=== PATIENT | female | born 1995 | race Caucasian/White ===

== ENCOUNTER → 2016-11-05 | Outpatient (REF) | payer OTHER | LOC: M LAB REF 17:11 | PROVIDERS: ATTEND Advanced Practice Midwife | DX: Z34.83 Encounter for supervision of other normal pregnancy, third trimester (principal) ==

== ENCOUNTER 2016-12-07 19:30 | Inpatient (IN) | payer OTHER ==
[~2016-12-07] VITALS: Ht 175.3 cm; Wt 125.0 kg
[2016-12-07 19:48] VITALS: BP 168/94
[2016-12-07 20:04] VITALS: BP 139/81
[2016-12-07] MEDS: miSOPROStol 50 MCG 1/2 TAB (S0191) PO SCH (20:39)
[2016-12-07 20:47] VITALS: BP 145/88
[2016-12-07 21:03] VITALS: BP 142/87
[2016-12-07 21:07] LABS: MEAN CORPUSCULAR HEMOGLOBIN 26.3 pg (27.0-33.0); MEAN CORPUSCULAR HGB CONC 33.4 g/dl (32.0-36.5); MEAN CORPUSCULAR VOLUME 78.7 fl (80.0-96.0); RED CELL DISTRIBUTION WIDTH 14.5 % (11.5-14.5); WHITE BLOOD COUNT 9.7 K/mm3 (4.0-10.0)
[2016-12-07 22:01] VITALS: BP 122/79
[2016-12-07 22:46] LABS: ALT/SGPT 13 U/L (12-78); AST/SGOT 13 U/L (15-37); BILIRUBIN,TOTAL 0.2 MG/DL (0.2-1.0); CREATININE FOR GFR 0.61 MG/DL (0.55-1.02); GLOMERULAR FILTRATION RATE > 60.0 (>60); URIC ACID 4.4 MG/DL (2.6-6.0)
[2016-12-07 23:12] VITALS: BP 124/69
[2016-12-08] VITALS (28 sets, daily range): BP systolic 113–151; BP diastolic 57–94
[2016-12-08] MEDS: miSOPROStol 50 MCG 1/2 TAB (S0191) PO SCH ×2 (00:41→05:03)
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
[2016-12-08] MEDS ORDERED: LR 1,000 ML IV SCH (15:21)
[2016-12-08] MEDS ORDERED: OXYTOCIN DRIP 30 UNITS in APPROPRIATE DILUENT 1 EA IV SCH (15:30)
[2016-12-08] MEDS ORDERED: FENTANYL 2MCG/ML ROPIVACAINE 0.2% NACL 250 ML CADD As Ordered ONE (16:00)
[2016-12-08] MEDS ORDERED: FENTANYL/ROPIVACAINE/NACL CADD 250 ML EPIDURAL SCH (17:00)
[2016-12-08] MEDS ORDERED: LACTATED RINGER'S 1000 ML IV PRN (17:00)
[2016-12-08] MEDS ORDERED: ONDANSETRON 4MG/2ML VIAL (J2405) IV PRN (17:00)
[2016-12-08] MEDS ORDERED: NALOXONE INJ 0.4 MG/1 ML VIAL (J2310) IV PRN (17:00)
[2016-12-08] MEDS ORDERED: EPIDURAL/PCA KEYS XX PRN (17:00)
[2016-12-08] MEDS ORDERED: ePHEDrine SULFATE 25 MG/5 ML(5MG/ML) SYRINGE IV PRN (17:00)
[2016-12-08] MEDS ORDERED: diphenhydrAMINE INJ 50MG/ML VIAL (J1200) IV PRN (17:00)
[2016-12-08] MEDS ORDERED: EPIDURAL COMMENT XX SCH (17:00)
[2016-12-08] MEDS ORDERED: REFRIGERATOR IV KEYS XX PRN (17:00)
[2016-12-08] MEDS: ACETAMINOPHEN 500 MG TAB PO PRN (20:55)
[2016-12-08] MEDS ORDERED: AMPICILLIN SOD/SULBACTAM SOD 3 GM in D5W MINI-BAG PLUS 100 ML IV SCH (22:00)
[2016-12-09 00:49] LABS: CORD GAS ABE V -4.7; CORD GAS HCO3 V 19.9 MEQ/L; CORD GAS O2 SAT V 61.8 %; CORD GAS PCO2 V 36.4 mmHg; CORD GAS PH V 7.355 UNITS; CORD GAS PO2 V 25.6 mmHg; CORD GAS SBC V 19.6 MEQ/L
[2016-12-09 00:52] LABS: CORD GAS ABE A -7.2; CORD GAS HCO3 A 20.4 MEQ/L; CORD GAS O2 SAT A 19.1 %; CORD GAS PCO2 A 48.5 mmHg; CORD GAS PH A 7.242 UNITS; CORD GAS PO2 A 15.5 mmHg; CORD GAS SBC A 16.8 MEQ/L; CORD GAS TCO2 A 21.9 MEQ/L
[2016-12-09] MEDS ORDERED: OXYTOCIN DRIP 30 UNITS in APPROPRIATE DILUENT 1 EA IV SCH (00:52)
[2016-12-09] MEDS ORDERED: MEASLES,MUMPS,RUBELLA VACCINE INJ (MMR-II) (90707) SC SCH (01:00)
[2016-12-09] MEDS ORDERED: METHYLERGONOVINE MALEATE 0.2 MG TAB PO PRN (01:00)
[2016-12-09] MEDS ORDERED: DOCUSATE SODIUM 100 MG CAP PO PRN (01:00)
[2016-12-09] MEDS ORDERED: DIBUCAINE 1% OINTMENT 30GM TOP PRN (01:00)
[2016-12-09] MEDS ORDERED: IBUPROFEN 800 MG TAB PO PRN (01:00)
[2016-12-09] MEDS ORDERED: ANUSOL HC CREAM 30GM TOP PRN (01:00)
[2016-12-09] MEDS ORDERED: RHOGAM 300 MCG (1500 IU) INJ (J2790) IM SCH (01:00)
[2016-12-09 01:52] VITALS: BP 131/62
[2016-12-09] MEDS: AMPICILLIN SOD/SULBACTAM SOD 3 GM in D5W MINI-BAG PLUS 100 ML IV SCH ×4 (03:50→21:40)
[2016-12-09] MEDS: ACETAMINOPHEN 500 MG TAB PO PRN (03:50)
[2016-12-09 05:34] VITALS: BP 118/58
--- NOTE | 2016-12-09 06:41 | DN ---
DATE: 12/09/2016 Miguel is a 21-year-old 1, para 1-0-0-1 now who was admitted to labor and delivery for induction of labor due to post-term . She did utilize an epidural for her labor coping. She progressed to full dilation at 2351 hours, pushed to a normal spontaneous vaginal delivery of a live female in OA position with restitution to LOT position at 0008. There is a nuchal cord times one, loose, that was reduced manually. [place] was placed on the maternal abdomen crying and active. Mouth and nares were bulb suctioned. There was noted to be terminal meconium at the time of delivery. Cord was clamped times two and cut by the father of the baby. Cord blood and cord gases were obtained. A spontaneous expulsion of an intact placenta with three-vessel cord by [place] mechanism was at 0013 hours. Uterine hemostasis was achieved with uterine fundal massage and IV Pitocin rapid improved infusion. Estimated blood loss 400 mL. Perineum and vagina inspected noted to have a first-degree midline laceration and bilateral labial laceration. The midline laceration was repaired with #3-0 Rapide in the usual fashion. Bilateral labials were hemostatic and no need for any repair. Female infant weighed 9 pounds 5 ounces, 4232 grams, scores 9 and 9. Mom plans to breastfeed her daughter. The family have named her Beatriz. At the close of delivery lap counts, needle counts and instrument counts were correct and verified.
[2016-12-09] MEDS: PRENATAL VITAMIN TAB PO SCH (09:00)
[2016-12-09 18:05] VITALS: BP 142/79
[2016-12-10] MEDS: AMPICILLIN SOD/SULBACTAM SOD 3 GM in D5W MINI-BAG PLUS 100 ML IV SCH (04:08)
[2016-12-10 05:56] VITALS: BP 132/79
[2016-12-10 07:29] LABS: MEAN CORPUSCULAR HEMOGLOBIN 26.3 pg (27.0-33.0); MEAN CORPUSCULAR HGB CONC 33.1 g/dl (32.0-36.5); MEAN CORPUSCULAR VOLUME 79.5 fl (80.0-96.0); RED CELL DISTRIBUTION WIDTH 14.8 % (11.5-14.5); WHITE BLOOD COUNT 12.2 K/mm3 (4.0-10.0)
[2016-12-10] MEDS: PRENATAL VITAMIN TAB PO SCH (08:37)
[2016-12-10 18:51] VITALS: BP 135/78
[2016-12-11 06:08] VITALS: BP 143/90
[2016-12-11] MEDS ORDERED: IBUP-1114 PO (08:04)
[2016-12-11] MEDS ORDERED: ACET50TA PO (08:04)
[2016-12-11] MEDS ORDERED: COLA100C PO (08:04)
[2016-12-11] MEDS: PRENATAL VITAMIN TAB PO SCH (08:27)
== END 2016-12-11 12:30 | disposition home or self-care (01) | DRG 775 ==
LOC: M LDI 19:30 → M OBS 12-09 01:42
PROVIDERS: ADMIT Advanced Practice Midwife; ATTEND Advanced Practice Midwife
PROC: 3E0DXGC Introduction of Other Therapeutic Substance into Mouth and Pharynx, External Approach (ICD-10-PCS; 2016-12-07)
PROC: 10E0XZZ Delivery of Products of Conception, External Approach (ICD-10-PCS; principal; 2016-12-09)
PROC: 0HQ9XZZ Repair Perineum Skin, External Approach (ICD-10-PCS; 2016-12-09)
DX: O48.0 Post-term pregnancy (principal); Z37.0 Single live birth; Z3A.41 41 weeks gestation of pregnancy; O69.82X0 Labor and delivery complicated by other cord entanglement, without compression, not applicable or unspecified; O77.0 Labor and delivery complicated by meconium in amniotic fluid; O70.0 First degree perineal laceration during delivery; Z91.410 Personal history of adult physical and sexual abuse

== ENCOUNTER 2017-05-31 11:05 | Emergency (ER) | payer OTHER ==
[~2017-05-31] VITALS: Ht 175.3 cm; Wt 115.8 kg
[~2017-05-31 11:05] MED LIST: ACET50TA PO; COLA100C5 PO; IBUP-1114 PO
[2017-05-31] MEDS ORDERED: BCP PO (11:15)
[2017-05-31] MEDS ORDERED: ZOLO50TA PO (11:15)
[2017-05-31 11:45] LABS: CALCIUM OXALATE CRYSTALS SMALL
[2017-05-31] MEDS ORDERED: NORCO, ANEXSIA 5/325MG TABLET (HYDROcodone/ACETAMINOPHEN) PO ONE (11:45)
[2017-05-31] MEDS ORDERED: ONDANSETRON 4 MG ORAL DISINTEGRATING TAB (S0181) PO ONE (11:45)
--- NOTE | 2017-05-31 13:04 | REP ---
Pelvic ultrasound including transabdominal, endovaginal and Doppler ultrasound assessment: The uterus is anteverted and normal size measuring 8.4 4.3 x 6.5 cm. The endometrium is not thickened measuring 3.6 mm. The right ovary is normal size measuring 2.4 x 1.8 x 2.2 cm. There is no dominant mass or cyst in the right ovary. In the left ovary. There is a 2.1 cm dominant follicle. Including this follicle the left ovary is normal size measuring 3.6 x 2.9 x 2.8 cm. With the Doppler assessment there is vascular flow in both ovaries with the Doppler resistive index of the intraparenchymal arteries of the right ovary measuring 0.53 and the left ovary demonstrating good venous flow. There is no free fluid in the pelvis. Impression: There is a 2.1 cm left ovarian dominant follicle. There is vascular flow in both ovaries. Otherwise, essentially negative pelvic ultrasound. Signed by Sebastian Cleary MD 05/31/2017 12:56 P
[2017-05-31] MEDS ORDERED: IBUP80TA PO (13:29)
[2017-05-31 13:38] VITALS: BP 145/82
== END 2017-05-31 13:45 | disposition home or self-care (01) ==
LOC: M ED 11:05
DX: N83.02 Follicular cyst of left ovary (principal); R10.2 Pelvic and perineal pain; F41.9 Anxiety disorder, unspecified; F32.9 Major depressive disorder, single episode, unspecified; F43.10 Post-traumatic stress disorder, unspecified; Z91.410 Personal history of adult physical and sexual abuse; Z79.3 Long term (current) use of hormonal contraceptives; Z79.899 Other long term (current) drug therapy

== ENCOUNTER 2022-07-12 10:53 | Emergency (ER) | payer BC, OTHER ==
[~2022-07-12] VITALS: Ht 175.3 cm; Wt 126.2 kg
[~2022-07-12 10:53] MED LIST changes: -ACET50TA PO; +BCP PO; +IBUP80TA PO; +MAPA500T2 PO; +ZOLO50TA PO
[2022-07-12] MEDS ORDERED: ONDANSETRON 4MG ORAL DISINTEGRATING TAB PO ONE (14:00)
[2022-07-12 14:23] LABS: BASO # 0.1 10^3/uL (0.0-0.2); BASO % 0.5 % (0.0-1.0); EOS % 0.4 % (0.0-3.0); HEMATOCRIT 40.7 % (36.0-47.0); HEMOGLOBIN 13.5 g/dl (12.0-15.5); LYMPH % 21.2 % (24.0-44.0); MEAN CORPUSCULAR HEMOGLOBIN 27.5 pg (27.0-33.0); MEAN CORPUSCULAR HGB CONC 33.2 g/dl (32.0-36.5); MEAN CORPUSCULAR VOLUME 82.9 fl (80.0-96.0); MONO # 0.4 10^3/uL (0.0-0.8); MONO % 4.2 % (2.0-8.0); NEUTROPHILS % 73.5 % (36.0-66.0); PLATELET COUNT, AUTOMATED 350 10^3/uL (150-450); RED BLOOD COUNT 4.91 10^6/uL (4.00-5.40); WHITE BLOOD COUNT 9.6 10^3/uL (4.0-10.0)
[2022-07-12 15:03] LABS: HCG, SERUM QUALITATIVE NEGATIVE (NEGATIVE)
[2022-07-12 15:11] LABS: ALBUMIN 4.3 GM/DL (3.2-5.2); ALT/SGPT 38 U/L (12-78); BILIRUBIN,DIRECT 0.1 MG/DL (0.0-0.2); BILIRUBIN,TOTAL 0.5 MG/DL (0.2-1.0); BLOOD UREA NITROGEN 9 MG/DL (7-18); CALCIUM LEVEL 9.6 MG/DL (8.5-10.1); CARBON DIOXIDE LEVEL 25 MEQ/L (21-32); CHLORIDE LEVEL 105 MEQ/L (98-107); CREATININE FOR GFR 0.77 MG/DL (0.55-1.30); GLOMERULAR FILTRATION RATE > 60.0 (>60); GLUCOSE, FASTING 93 MG/DL (70-100); LIPASE 96 U/L (73-393); POTASSIUM SERUM 4.2 MEQ/L (3.5-5.1); SODIUM LEVEL 136 MEQ/L (136-145); TOTAL PROTEIN 8.9 GM/DL (6.4-8.2)
[2022-07-12] MEDS ORDERED: ONDA4TAB6 PO (15:59)
[2022-07-12 16:02] VITALS: BP 137/68
[2022-07-13] MEDS ORDERED: FAMO10TA50 PO (10:22)
[2022-07-13] MEDS ORDERED: HYDR-3363 PO (12:44)
== END 2022-07-12 16:03 | disposition home or self-care (01) ==
LOC: M ED 10:53
DX: R11.2 Nausea with vomiting, unspecified (principal); Z79.899 Other long term (current) drug therapy

== ENCOUNTER 2022-07-13 10:05 | Emergency (ER) | payer BC ==
[~2022-07-13] VITALS: Ht 175.3 cm; Wt 124.4 kg
[~2022-07-13 10:05] MED LIST changes: +ONDA4TAB6 PO
[2022-07-13] MEDS ORDERED: FAMO10TA50 PO (10:22)
[2022-07-13] MEDS ORDERED: HYDR-3363 PO (12:44)
[2022-07-13 13:01] VITALS: BP 140/68
== END 2022-07-13 13:00 | disposition home or self-care (01) ==
LOC: M ED 10:05
DX: F41.9 Anxiety disorder, unspecified (principal); R42 Dizziness and giddiness; R11.0 Nausea; K21.9 Gastro-esophageal reflux disease without esophagitis; K58.9 Irritable bowel syndrome, unspecified; F43.10 Post-traumatic stress disorder, unspecified; F32.A Depression, unspecified; Z79.811 Long term (current) use of aromatase inhibitors; Z79.899 Other long term (current) drug therapy

== ENCOUNTER → 2022-09-11 | Outpatient (CLI) | payer BC ==
[~2022-09-11] MED LIST changes: +FAMO10TA50 PO; +HYDR-3363 PO
[2022-09-11 13:58] LABS: BASO % 0.6 % (0.0-1.0); EOS # 0.2 10^3/uL (0.0-0.5); EOS % 2.9 % (0.0-3.0); HEMATOCRIT 38.7 % (36.0-47.0); HEMOGLOBIN 12.3 g/dl (12.0-15.5); LYMPH # 1.7 10^3/uL (1.5-5.0); LYMPH % 27.4 % (24.0-44.0); MEAN CORPUSCULAR HEMOGLOBIN 27.2 pg (27.0-33.0); MEAN CORPUSCULAR HGB CONC 31.8 g/dl (32.0-36.5); MEAN CORPUSCULAR VOLUME 85.4 fl (80.0-96.0); MONO # 0.4 10^3/uL (0.0-0.8); MONO % 6.5 % (2.0-8.0); NEUTROPHILS # 3.9 10^3/uL (1.5-8.5); NEUTROPHILS % 62.4 % (36.0-66.0); PLATELET COUNT, AUTOMATED 293 10^3/uL (150-450); RED BLOOD COUNT 4.53 10^6/uL (4.00-5.40); WHITE BLOOD COUNT 6.3 10^3/uL (4.0-10.0)
[2022-09-11 14:22] LABS: FREE T4 1.14 NG/DL (0.89-1.76); THYROID STIMULATING HORMONE 1.736 uIU/ML (0.55-4.78); TOTAL 25(OH) VITAMIN D 14.7 NG/ML (20.0-100.0)
== END ==
LOC: M PLALAB 09:45
PROVIDERS: ATTEND Nurse Practitioner Family
DX: R53.83 Other fatigue (principal); E55.9 Vitamin D deficiency, unspecified